=== PATIENT | female | born 1990 | race Caucasian/White ===

== ENCOUNTER 2017-09-10 07:28 | Day surgery (SDC) | payer OTHER ==
[2017-09-10] MEDS ORDERED: BUPIVACAINE/EPI 0.5% 30 ML SDV ONE (07:41)
[2017-09-10] MEDS ORDERED: ACETAMINOPHEN 500 MG TAB PO ONE (07:45)
[2017-09-10] MEDS ORDERED: PHENAZOPYRIDINE HCL 200 MG TAB PO ONE (07:45)
[2017-09-10] MEDS ORDERED: GABAPENTIN 400 MG CAP PO ONE (07:45)
[2017-09-10] MEDS ORDERED: ceFAZolin 2 GM/SWFI 2 GM/20 ML SYR IVP ONE (07:45)
[2017-09-10] MEDS ORDERED: LIDOCAINE 1% 2 ML INJ ID PRN (07:46)
[2017-09-10] MEDS ORDERED: LR 1,000 ML IV ONE (07:46)
[2017-09-10] MEDS ORDERED: MIDAZOLAM 2 MG/2 ML VIAL IVP ONE (08:00)
--- NOTE | 2017-09-10 08:01 | PDANEPAE ---
ANE Past Medical History - Cardiovascular History Hx Hypertension: No Hx Arrhythmias: No Hx Chest Pain: No Hx Coronary Artery / Peripheral Vascular Disease: No Hx CHF / Valvular Disease: No Hx Palpitations: No - Pulmonary History Hx COPD: No Hx Asthma/Reactive Airway Disease: No Hx Recent Upper Respiratory Infection: No Hx Oxygen in Use at Home: No Hx Sleep Apnea: No Sleep Apnea Screening Result - Last Documented: Negative - Neurologic History Hx Cerebrovascular Accident: No Hx Seizures: No Hx Dementia: No - Endocrine History Hx Diabetes: No Hypothyroid: No Hyperthyroid: No Obesity: no - Renal History Hx Renal Disorders: No - Liver History Hx Hepatic Disorders: No - Neurological & Psychiatric Hx Hx Neurological and Psychiatric Disorders: Yes Neurological / Psychiatric History Comment: major depressive diorder and PTSD - Cancer History Hx Cancer: No - Congenital Disorder History Hx Congenital Disorders: No - GI History GERD: no Hx Gastrointestinal Disorders: Yes Gastrointestinal History Comment: IBS - Other Health History Other Health History: ENDOMETRIOSIS - Chronic Pain History Chronic Pain: No - Surgical History Prior Surgeries: exploratory lap, appendectomy 05/31 ANE Review of Systems Review of Systems: - Exercise capacity METS (RN): 4 METS ANE Patient History - Allergies Allergies/Adverse Reactions: peanut Allergy (Verified 08/19/17 14:29) Other-Enter Comments - Home Medications Home Medications: NK [No Known Home Meds] 08/19/17 [Last Taken Unknown] - Anes Hx Anes Hx: post operative nausea - Smoking Hx Smoking Status: Heavy smoker - Alcohol Use Alcohol Use: Rarely - Family Anes Hx Family Anes Hx: neg - N/A Family Hx Anesthesia Complications: none ANE Labs/Vital Signs - Vital Signs Height: 154.94 cm Weight: 52.163 kg ANE Physical Exam - Airway Neck exam: FROM Mallampati Score: Class 3 Mouth exam: normal dental/mouth exam - Pulmonary Pulmonary: no respiratory distress, no rales or rhonchi, clear to auscultation - Cardiovascular Cardiovascular: regular rate and rhythym, no murmur, rub, or gallop - ASA Status ASA Status: II ANE Anesthesia Plan Anesthesia Plan: general endotracheal anesthesia Total IV Anesthesia: No
[2017-09-10] MEDS ORDERED: ceFAZolin 2 GM/DEXTROSE 100 ML IV ONE (08:30)
--- NOTE | 2017-09-10 08:40 | PDHPUP ---
History & Physical Update H&P update statement: This history and physical update is based on an assessment of the patient which was completed after admission or registration (within 24 hours), but prior to the surgery/procedure. H&P update: H&P reviewed & patient examined, no change in patient's condition since H&P completed
--- NOTE | 2017-09-10 08:45 | POSTOPPROG ---
Post Op Note Date of Operation: 09/10/17 Surgeon: Venkata Lovett Airline Manager: Jo Ann Macdonald Anesthesia: GET(General Endotracheal) Pre-op Diagnosis: Endometriosis Post-op Diagnosis: same Procedure: robotic excision of endo, bilat ureterolysis and ovarian pexy, rectal lesio Findings: endo Inf/Abcess present in the surg proc area at time of surgery?: No EBL: Minimal Complications: None Specimen(s): Endo
[2017-09-10] MEDS ORDERED: fentaNYL 100 MCG/2 ML INJ ONE ×5 (09:15→13:18)
[2017-09-10] MEDS ORDERED: ROCURONIUM 50 MG/5 ML VIAL ONE (09:18)
[2017-09-10] MEDS ORDERED: SCOPOLAMINE HYDROBROMIDE 1 MG/3 DAYS PATCH TD ONE (09:18)
[2017-09-10] MEDS ORDERED: ONDANSETRON 4 MG/2 ML VIAL ONE ×3 (09:18→12:36)
[2017-09-10] MEDS ORDERED: DEXAMETHASONE 4 MG/ML VIAL ONE (09:18)
[2017-09-10] MEDS ORDERED: LIDOCAINE 2% 5 ML SDV ONE (09:19)
[2017-09-10] MEDS ORDERED: PROPOFOL 200 MG/20 ML VIAL ONE (09:20)
[2017-09-10] MEDS ORDERED: SCOPOLAMINE HYDROBROMIDE 1 MG/3 DAYS PATCH TD SCH (09:30)
[2017-09-10] MEDS ORDERED: PHENYLEPHRINE HCL 100 MCG/ML SYR ONE ×2 (09:38)
[2017-09-10] MEDS ORDERED: ACETAMINOPHEN 500 MG TAB PO PRN (10:03)
[2017-09-10] MEDS ORDERED: NALOXONE HCL 0.4 MG/ML INJ IVP PRN (10:03)
[2017-09-10] MEDS ORDERED: PHENYLEPHRINE HCL 100 MCG/ML SYR IVP PRN (10:03)
[2017-09-10] MEDS ORDERED: HYDROCODONE/APAP 5/325 TAB PO PRN (10:03)
[2017-09-10] MEDS ORDERED: LR 500 ML IV PRN (10:03)
[2017-09-10] MEDS ORDERED: oxyCODONE IR 5 MG TAB PO PRN (10:03)
[2017-09-10] MEDS ORDERED: HYDROmorphONE/DILAUDID 2 MG/ML INJ IVP PRN (10:03)
[2017-09-10] MEDS ORDERED: epHEDrine SULFATE 10 MG/ML SYR IVP PRN (10:03)
[2017-09-10] MEDS ORDERED: KETOROLAC 30 MG/1 ML SDV ONE (10:23)
[2017-09-10] MEDS ORDERED: GLYCOPYRROLATE 0.2 MG/1 ML VIAL ONE ×2 (10:24)
[2017-09-10] MEDS ORDERED: NEOSTIGMINE METHYLSULFATE 10 MG/10 ML MDV ONE (10:24)
[2017-09-10] MEDS: fentaNYL 100 MCG/2 ML INJ IVP PRN ×4 (10:58→13:20)
[2017-09-10] MEDS ORDERED: oxyCODONE IR 5 MG TAB ONE (11:51)
[2017-09-10] MEDS: ONDANSETRON 4 MG/2 ML VIAL IVP PRN ×2 (12:07→12:37)
--- NOTE | 2017-09-10 12:15 | GOP ---
[f rep st] OPERATIVE REPORT DATE OF OPERATION: 09/10/2017 SURGEON: Venkata Lovett MD GRADE RECORDER: Jo Ann Macdonald CFA. ANESTHESIA: General. PREOPERATIVE DIAGNOSIS: 1. Endometriosis. 2. Dysmenorrhea. 3. Cyclic pelvic pain. 4. Dyschezia. POSTOPERATIVE DIAGNOSIS: 1. Endometriosis. 2. Dysmenorrhea. 3. Cyclic pelvic pain. 4. Dyschezia. PROCEDURE PERFORMED: 1. Robotic excision of endometriosis in the anterior posterior cul-de-sacs and bilateral ovarian fossae. 2. Excision of rectal lesions. 3. Bilateral ureterolysis. 4. Bilateral ovarian pexy. 5. Endometriosis. 6. Dysmenorrhea. 7. Cyclic pelvic pain. 8. Dyschezia. FINDINGS: SPECIMENS: 1. Pelvic peritoneum with endometriosis. 1. Rectal lesions. 2. ESTIMATED BLOOD LOSS: Scant. DESCRIPTION OF PROCEDURE: Emma was taken to the operating room. She was identified. General anesthesia was administered and found to be adequate. She was placed in the lithotomy position and prepared and draped in normal sterile fashion. A Hulka tenaculum was placed in the uterus for manipulation. A Grubbs catheter was then placed. A 1 cm infraumbilical incision was made with a scalpel. The Veress needle with the CO2 gas flowing was advanced into the peritoneal cavity. The abdomen was insufflated with carbon dioxide gas. The 12 mm trocar followed by the laparoscope were then inserted. The upper abdomen was unremarkable. There was no evidence of endometriosis on either diaphragm, liver, stomach, gallbladder or bowel. Two lateral ports were placed in the right and 1 in the left under direct visualization. She then was placed in Trendelenburg position and the da Parth robot docked on the left side. The instruments were then brought into the abdominal cavity under direct visualization. She was noted to have multiple lesions of endometriosis, cervix, posterior cul- de-sac, bilateral ovarian fossas and lesser in the right anterior cul-de-sac. She also had several lesions on the serosa. The left ovary had adhesions to both the ovarian fossa as well as the fallopian tubes. Part of the ovarian fossa adhesions was due to a retained surgical staple. She also had multiple lesions on the distal half of the rectum. There were no lesions on either ovaries. The anterior cul-de-sac peritoneum was excised. A bilateral ovarian pexy was performed due to her cyclic pelvic pain. This was accomplished with 3-0 Vicryl Rapide suture to attach the ovaries to the ipsilateral round ligaments near the internal inguinal rings. The lesions on the distal rectum were then excised. Several required fulguration. The entire posterior cul-de-sac peritoneum from the distal rectum up to the cervix and laterally to the uterosacral ligaments were completely excised. A bilateral ureterolysis was required to excise the endometriosis on both ovarian fossae multiple of which were overlying the ureters especially one slightly more nodular lesion on the right distal ureter. The peritoneum at the pelvic brims were incised. The ureters were gently dissected free and lateralized off the overlying peritoneum and endometriosis from the pelvic brim all the way down to the uterine arteries. Once this was accomplished, the entire ovarian fossa peritoneum from the pelvic brim down to the uterosacral ligaments and anteriorly to the ovaries were completely excised bilaterally. The pelvis was then irrigated with sterile saline. Hemostasis was present. The robot was then undocked. The fascia was closed with 0 Vicryl , skin with 3-0 Monocryl and surgical adhesive. Anesthesia was reversed and the patient taken to PACU awake, in stable condition. COMPLICATIONS: None. DISPOSITION: Patient stable to PACU. /[id number]/MODL MTDD
--- NOTE | 2017-09-10 12:20 | POSTANESTH ---
Post Anesthetic Evaluation Cardiovascular Status: Normal, Stable Respiratory Status: Normal, Stable Level of Consciousness/Mental Status: Can Participate in Eval Pain Control: Adequate, Prn Tx Ordered Nausea/Vomiting Control: Adequate, Prn Tx Ordered Complications Possibly Related to Anesthesia: None Noted
[2017-09-10 14:31] VITALS: BP 93/52
[2017-09-13] MEDS ORDERED: PATCH REMOVAL 1 EA PATCH TD SCH (09:17)
== END 2017-09-10 14:35 | disposition home or self-care (01) ==
LOC: FSGY 07:28
PROVIDERS: ATTEND Obstetrics & Gynecology
PROC: 0UB24ZZ Excision of Bilateral Ovaries, Percutaneous Endoscopic Approach (ICD-10-PCS; principal; 2017-09-10 09:15)
PROC: 0DBP0ZZ Excision of Rectum, Open Approach (ICD-10-PCS; principal; 2017-09-10 09:15)
PROC: 0UBF8ZZ Excision of Cul-de-sac, Via Natural or Artificial Opening Endoscopic (ICD-10-PCS; principal; 2017-09-10 09:15)
DX: N80.3 Endometriosis of pelvic peritoneum (principal); N94.6 Dysmenorrhea, unspecified; K59.00 Constipation, unspecified
CPT/HCPCS: J0690; J1100; J1885; J2250; J2370; J2405; J2704; J3010